=== PATIENT | female | born 1985 | race Caucasian/White ===

== ENCOUNTER 2022-05-07 14:32 | Emergency (ER) | payer SELFPAY ==
[2022-05-07 15:13] LABS: Absolute Lymphocytes (CBC) 1.2 K/uL (0.7-4.9); Hematocrit 39.6 % (36.0-45.0); Lymphocytes % 12.2 % (15.3-44.8); MCV 89.5 fL (80-100); MPV 7.6 fL (7.6-11.3); RBC Red Blood Cell Count 4.42 M/uL (3.86-4.86)
[2022-05-07 15:24] LABS: Protime INR 1.11
[2022-05-07 15:44] LABS: Bilirubin Direct 0.1 mg/dL (0-0.2); Bilirubin Total 0.3 mg/dL (0.2-1.0); Potassium 4.1 mmol/L (3.5-5.1); Protein, Total 7.4 g/dL (6.4-8.2); Troponin High Sensitivity 5.4 pg/mL (<58.9)
--- NOTE | 2022-05-07 16:09 | RAD REPORT ---
EXAM DESCRIPTION: RAD - Chest Single View - 05/07/2022 4:02 pm CLINICAL HISTORY: CHEST PAIN Chest pain. COMPARISON: No comparisons FINDINGS: Portable technique limits examination quality. The lungs are grossly clear. The heart is normal in size. No displaced fractures. IMPRESSION: No acute intrathoracic process suspected.
[2022-05-07] MEDS ORDERED: ALBUTEROL 2.5 MG/3 ML NEB SOL ONE (17:47)
[2022-05-07] MEDS ORDERED: IPRATROPIUM BROM 0.5MG/2.5ML ONE (17:47)
[2022-05-07] MEDS ORDERED: METHYLPREDNISOLONE 125 MG INJ ONE (17:47)
--- NOTE | 2022-05-07 18:56 | EDPHYS ---
Physician Documentation [facility] Name: Yadira Boles Age: 36 yrs Sex: Female : 1985 Arrival Date: 05/07/2022 Time: 14:35 Bed 23 Private MD: ED Physician Wil Shaffer HPI: 05/07 14:55 This 36 yrs old Female presents to ER via EMS with complaints of Chest pain and cp Shortness of Breath. 14:55 The patient or guardian reports chest pain that is located primarily in the anterior cp chest wall, bilaterally. Associated signs and symptoms: Pertinent positives: shortness of breath, Pertinent negatives: abdominal pain, diaphoresis, dizziness, lower extremity pain, syncope, vomiting. The chest pain is described as squeezing. Duration: The patient or guardian reports a single episode, that is still ongoing, and unchanged. Severity of pain: in the emergency department the pain is unchanged. 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 - Social history:: Smoking status: Patient denies any tobacco usage or history of. ROS: 15:00 Constitutional: Negative for body aches, chills, fever, poor PO intake. cp 15:00 Eyes: Negative for injury, pain, redness, and discharge. cp 15:00 ENT: Negative for drainage from ear(s), ear pain, sore throat, difficulty swallowing, difficulty handling secretions. 15:00 Cardiovascular: Positive for chest pain, Negative for palpitations. 15:00 Respiratory: Positive for shortness of breath, at rest. 15:00 Abdomen/GI: Negative for abdominal pain, vomiting, diarrhea, constipation. 15:00 Back: Negative for pain at rest, pain with movement. 15:00 Neuro: Negative for altered mental status, dizziness, headache, syncope, weakness. 15:00 All other systems are negative. Exam: 15:05 Constitutional: The patient appears in no acute distress, alert, awake, cp non-diaphoretic, non-toxic, well developed, well nourished, anxious, obese. 15:05 Head/Face: Normocephalic, atraumatic. cp 15:05 Eyes: Periorbital structures: appear normal, Conjunctiva: normal, no exudate, no injection, Sclera: no appreciated abnormality, Lids and lashes: appear normal, bilaterally. 15:05 ENT: External ear(s): are unremarkable, Nose: is normal, Mouth: Lips: moist, Oral mucosa: pink and intact, moist, Posterior pharynx: Airway: no evidence of obstruction, patent, swelling, is not appreciated, erythema, is not appreciated, exudate, is not appreciated. 15:05 Neck: ROM/movement: is normal, is supple, without pain, no range of motions limitations, no meningismus. 15:05 Chest/axilla: Inspection: normal, Palpation: is normal, no crepitus, no tenderness. 15:05 Cardiovascular: Rate: normal, Rhythm: regular, Edema: pedal edema, that is moderate, JVD: is not appreciated. 15:05 Respiratory: the patient does not display signs of respiratory distress, Respirations: shallow respirations, that is mild, Breath sounds: decreased breath sounds, are not appreciated, rhonchi, are not appreciated, stridor, is not appreciated. 15:05 Abdomen/GI: Inspection: obese Palpation: abdomen is soft and non-tender, in all quadrants. 15:05 Back: pain, is absent, ROM is normal. 15:05 Neuro: Orientation: to person, place \\T\\ time. Mentation: is normal, Motor: moves all fours, strength is normal, Sensation: 15:20 ECG was reviewed by the Attending Physician. cp Vital Signs: 14:36 BP 138 / 69; Pulse 87; Resp 18; Temp 98.1; Pulse Ox 98% ; Weight 136.08 kg; Height 5 ll1 ft. 7 in. (170.18 cm); Pain 7/10; 18:05 BP 139 / 82; Pulse 81; Resp 18; Pulse Ox 95% on R/A; ll1 19:04 BP 139 / 81; Pulse 81; Resp 18; Pulse Ox 96% ; Pain 0/10; ll1 14:36 Body Mass Index 46.99 (136.08 kg, 170.18 cm) ll1 MDM: 14:51 Patient medically screened. rob 18:55 Data reviewed: vital signs, nurses notes, lab test result(s), EKG, radiologic studies, cp plain films, and as a result, I will discharge patient. 18:55 Differential diagnosis: abnormal EKG, acute myocardial infarction, acute pericarditis, cp anxiety, pericarditis, pleurisy, pneumonia, pneumothorax. Counseling: I had a detailed discussion with the patient and/or guardian regarding: the historical points, exam findings, and any diagnostic results supporting the discharge/admit diagnosis, lab results, radiology results, the need for outpatient follow up, a family practitioner, to return to the emergency department if symptoms worsen or persist or if there are any questions or concerns that arise at home. 05/07 14:47 Order name: Basic Metabolic Panel; Complete Time: 16:12 05/07 14:47 Order name: CBC with Diff; Complete Time: 16:12 05/07 16:12 Interpretation: Normal except: LUMA% 79.2; LYM% 12.2. 05/07 14:47 Order name: LFT's; Complete Time: 16:12 05/07 16:12 Interpretation: Normal except: AST 8; ALB 3.0; GLOB 4.4; A/G 0.7. 05/07 14:47 Order name: Magnesium; Complete Time: 16:12 05/07 14:47 Order name: NT PRO-BNP; Complete Time: 16:12 05/07 14:47 Order name: PT-INR; Complete Time: 16:12 05/07 14:47 Order name: Troponin HS; Complete Time: 16:12 05/07 16:13 Interpretation: Troponin HS 5.4; Reviewed. 05/07 14:47 Order name: XRAY Chest (1 view); Complete Time: 16:12 05/07 16:13 Interpretation: Report review. 05/07 14:47 Order name: EKG; Complete Time: 14:48 05/07 14:47 Order name: Cardiac monitoring; Complete Time: 15:17 05/07 14:47 Order name: EKG - Nurse/Tech; Complete Time: 15:17 05/07 14:47 Order name: IV Saline Lock; Complete Time: 15:17 05/07 14:47 Order name: Labs collected and sent; Complete Time: 15:17 05/07 14:47 Order name: O2 Per Protocol; Complete Time: 14:51 cp 05/07 14:47 Order name: O2 Sat Monitoring; Complete Time: 14:51 cp EC:20 Rate is 89 beats/min. Rhythm is regular. IA interval is normal. QRS interval is cp prolonged at 104 msec. QT interval is normal. T waves are Inverted in lead aVR. Interpreted by me. Reviewed by me. Administered Medications: 17:46 Not Given (Patient Refused): Ativan (LORazepam) 1 mg IVP once ll1 17:46 Drug: Albuterol - atroVENT (ipratropium) (3:1) (2.5 mg - 0.5 mg) 3 ml Route: Nebulizer; ll1 18:04 Follow up: Response: No adverse reaction ll1 17:46 Drug: SOLU-Medrol (methylPrednisoLONE) 125 mg Route: IVP; Site: right antecubital; ll1 18:04 Follow up: Response: No adverse reaction ll1 Disposition Summary: 05/07/22 18:56 Discharge Ordered Location: Home cp Problem: an acute exacerbation cp Symptoms: have improved cp Condition: Stable cp Diagnosis - Unspecified asthma with (acute) exacerbation cp - Chest pain, unspecified cp Followup: cp - With: Private Physician - When: 1 - 2 days - Reason: Recheck today's complaints Discharge Instructions: - Discharge Summary Sheet cp - Asthma, Adult cp - Nonspecific Chest Pain, Adult cp Forms: - Medication Reconciliation Form cp - Thank You Letter cp - Antibiotic Education cp - Prescription Opioid Use cp Prescriptions: - albuterol sulfate 90 mcg/actuation Inhalation HFA aerosol inhaler - inhale 2 puff by INHALATION route every 6 hours; 1 Inhaler; Refills: 0, Product cp Selection Permitted - Prednisone 20 mg Oral Tablet - take 3 tablets by ORAL route once daily for 5 days; 15 tablet; Refills: 0, cp Product Selection Permitted Signatures: Dispatcher [employer] EDWil Marrufo MD MD cha Page, Corey, PA PA cp Lewis, Lynsay, RN RN ll1
--- NOTE | 2022-05-07 18:56 | ER ---
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 Tightness ll1 to trunk area EMS states: BP 170/100's. 97% RA, NS on monitor. Coronavirus screen: Vaccine status: Patient reports being unvaccinated. Client denies travel out of the [place] in the last 14 days. cough unrelated to allergies, difficulty breathing, shortness of breath, Client presents with at least one sign or symptom that may indicate coronavirus-19. Standard/surgical mask placed on the client. Ebola Screen: Patient denies travel to an Ebola-affected area in the 21 days before illness onset. Initial Sepsis Screen: Does the patient meet any 2 criteria? No. Patient's initial sepsis screen is negative. Does the patient have a suspected source of infection? No. Patient's initial sepsis screen is negative. Risk Assessment: Do you want to hurt yourself or someone else? Patient reports no desire to harm self or others. Onset of symptoms was May 07, 2022. 14:36 Method Of Arrival: EMS ll1 14:36 Acuity: ADRIANA 3 ll1 Triage Assessment: 14:38 General: Appears uncomfortable, ill, Behavior is cooperative, appropriate for age. ll1 Pain: Complains of pain in trunk Quality of pain is described as pressure, squeezing, Pain began 1 hour ago. Is continuous. Neuro: No deficits noted. Cardiovascular: No deficits noted. Respiratory: Reports shortness of breath cough that is labored breathing pain with respiration Airway is patent Trachea midline Respiratory effort is even, unlabored, Respiratory pattern is regular, symmetrical, Breath sounds are clear bilaterally. 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 - Social history:: Smoking status: Patient denies any tobacco usage or history of. Screenin:39 Abuse screen: Denies threats or abuse. Nutritional screening: No deficits noted. ll1 Tuberculosis screening: No symptoms or risk factors identified. 15:17 Fall Risk IV access (20 points). Total Hutton Fall Scale indicates No Risk (0-24 pts). ll1 Assessment: 15:17 Reassessment: No changes from previously documented assessment. Patient and/or family ll1 updated on plan of care and expected duration. Pain level reassessed. 16:15 Reassessment: No changes from previously documented assessment. Patient and/or family ll1 updated on plan of care and expected duration. Pain level reassessed. Patient is alert, oriented x 3, equal unlabored respirations, skin warm/dry/pink. 17:15 Reassessment: No changes from previously documented assessment. Patient and/or family ll1 updated on plan of care and expected duration. Pain level reassessed. 18:15 Reassessment: No changes from previously documented assessment. Patient and/or family ll1 updated on plan of care and expected duration. Pain level reassessed. Patient is alert, oriented x 3, equal unlabored respirations, skin warm/dry/pink. 19:05 Reassessment: No changes from previously documented assessment. Patient and/or family ll1 updated on plan of care and expected duration. Pain level reassessed. Patient states symptoms have improved. Vital Signs: 14:36 BP 138 / 69; Pulse 87; Resp 18; Temp 98.1; Pulse Ox 98% ; Weight 136.08 kg; Height 5 ll1 ft. 7 in. (170.18 cm); Pain 7/10; 18:05 BP 139 / 82; Pulse 81; Resp 18; Pulse Ox 95% on R/A; ll1 19:04 BP 139 / 81; Pulse 81; Resp 18; Pulse Ox 96% ; Pain 0/10; ll1 14:36 Body Mass Index 46.99 (136.08 kg, 170.18 cm) ll1 ED Course: 14:35 Patient arrived in ED. eb 14:35 Reg Long RN is Primary Nurse. ll1 14:35 Arm band placed on Patient placed in an exam room, on a stretcher. ll1 14:38 Triage completed. ll1 14:40 Wil Nelson PA is PHCP. cp 14:46 Wil Shaffer MD is Attending Physician. cp 15:17 Inserted saline lock: 22 gauge in right antecubital area, using aseptic technique. ll1 Blood collected. 15:18 Patient has correct armband on for positive identification. Bed in low position. Call ll1 light in reach. Side rails up X 1. Client placed on continuous cardiac and pulse oximetry monitoring. NIBP monitoring applied. quality assurance monitor on. 16:04 XRAY Chest (1 view) In Process Unspecified. EDMS 19:04 No provider procedures requiring assistance completed. IV discontinued, intact, ll1 bleeding controlled, No redness/swelling at site. Pressure dressing applied. Administered Medications: 17:46 Not Given (Patient Refused): Ativan (LORazepam) 1 mg IVP once ll1 17:46 Drug: Albuterol - atroVENT (ipratropium) (3:1) (2.5 mg - 0.5 mg) 3 ml Route: Nebulizer; ll1 18:04 Follow up: Response: No adverse reaction ll1 17:46 Drug: SOLU-Medrol (methylPrednisoLONE) 125 mg Route: IVP; Site: right antecubital; ll1 18:04 Follow up: Response: No adverse reaction ll1 Medication: 14:39 VIS not applicable for this client. ll1 Outcome: 18:56 Discharge ordered by . cp 19:05 Discharged to home ambulatory. ll1 19:05 Condition: stable 19:05 Discharge instructions given to patient, police, Instructed on discharge instructions, follow up and referral plans. medication usage, Demonstrated understanding of instructions, follow-up care, medications, Prescriptions given X 2. 19:05 Patient left the ED. ll1 Signatures: Dispatcher [employer] EDOR Wil Nelson PA PA cp Botello, Elizabeth eb Lewis, Lynsay RN RN ll1
--- NOTE | 2022-05-08 12:33 | EKG ---
Test Date: 2022-05-07 Test Time: 15:10:59 Web Solutions Architect: ASAD MEASUREMENT RESULTS: Intervals: Rate: 89 IL: 178 QRSD: 104 QT: 390 QTc: 474 [place]: P: 52 IL: 178 QRS: 82 T: 42 INTERPRETIVE STATEMENTS: Sinus rhythm with premature supraventricular complexes Otherwise normal ECG No previous ECG available for comparison Electronically Signed On 05-08-22 12:32:08 CDT by Nate Falcon
[2022-05-09 00:39] VITALS: TEMP 98.1
[2022-05-09 01:21] VITALS: BP 139/81; O2SAT 96
== END 2022-05-07 19:05 | disposition home or self-care (01) ==
LOC: ER 14:32
DX: J45.901 Unspecified asthma with (acute) exacerbation (principal)
CPT/HCPCS: 36415; 71045; 80048; 80076; 83735; 83880; 84484; 85025; 85610; 93005; 94640; 96374; 99285; J2930